=== PATIENT | male | born 1935 | race Caucasian/White ===

== ENCOUNTER → 2017-07-05 | Outpatient (CLI) | payer MEDICAID ==
[~2017-07-05] MED LIST: IODIXANOL LOCM 100 ML BTL; IODIXANOL LOCM 50 ML BTL; SOD CHLORIDE 0.9% 100 ML
== END | disposition home or self-care (01) ==
LOC: C/S 15:03
DX: C44.90 Unspecified malignant neoplasm of skin, unspecified (principal); I70.90 Unspecified atherosclerosis; I51.7 Cardiomegaly; N40.0 Benign prostatic hyperplasia without lower urinary tract symptoms; K40.90 Unilateral inguinal hernia, without obstruction or gangrene, not specified as recurrent
CPT/HCPCS: 71270; 74178

== ENCOUNTER 2017-07-09 13:53 | Inpatient (IN) | payer MEDICAID ==
[2017-07-09 15:45] LABS: ADD MAN DIFF? NO
[2017-07-09] MEDS: morphine 4 MG/ML VIAL IV (15:47)
[2017-07-09 15:48] LABS: WHITE BLOOD COUNT 7.8 10^3/ul (4.8-10.8)
[2017-07-09 15:48] LABS: BASOPHIL # 0.1 10^3/ul (0.0-0.1); BASOPHILS % 0.6 % (0.0-2.0); EOSINOPHILS # 0.1 10^3/ul (0.0-0.5); EOSINOPHILS % 1.8 % (0.0-7.0); HEMATOCRIT 34.2 % (42.0-52.0); HEMOGLOBIN 11.4 g/dl (14.0-18.0); LYMPHOCYTES % 12.4 % (15.0-51.0); MEAN CORPUSCULAR HEMOGLOBIN 31.3 pg (29.0-33.0); MEAN CORPUSCULAR HGB CONC 33.3 g/dl (32.0-37.0); MONOCYTE # 0.4 10^3/ul (0.3-0.9); MONOCYTES % 5.7 % (0.0-11.0); NEUTROPHIL # 6.1 10^3/ul (1.6-7.5); NEUTROPHILS % 79.1 % (39.0-77.0); PLATELET COUNT 233 10^3/UL (140-415); RED BLOOD COUNT 3.64 10^6/ul (4.70-6.10); RED CELL DISTRIBUTION WIDTH 16.6 % (11.5-14.5)
[2017-07-09] MEDS: ACETAMINOPHEN 325 MG TAB PO (15:48)
[2017-07-09] MEDS: ONDANSETRON 4 MG INJ IV (15:48)
[2017-07-09] MEDS: VANCOMYCIN 1 GM (PMX) 250 ML IVPB (15:49)
[2017-07-09] MEDS: SODIUM CHLORIDE 0.9% 1L BAG IV* (15:52)
[2017-07-09] MEDS ORDERED: ONDANSETRON 4 MG INJ IV ×2 (16:00→16:30)
[2017-07-09 16:08] LABS: INR 0.98; PARTIAL THROMBOPLASTIN TIME 31.2 Sec (25.0-35.0); PROTIME 13.1 Sec (11.9-14.9)
[2017-07-09 16:10] LABS: ALANINE AMINOTRANSFERASE 31 IU/L (13-69); ALBUMIN 3.6 g/dl (3.3-4.9); ALBUMIN/GLOBULIN RATIO 0.85; ALKALINE PHOSPHATASE 91 IU/L (42-121); ANION GAP 14 (8-16); ASPARTATE AMINO TRANSFERASE 35 IU/L (15-46); BLOOD UREA NITROGEN 15 mg/dl (7-20); CALCIUM 8.6 mg/dl (8.4-10.2); CARBON DIOXIDE 30 mmol/L (21-31); CHLORIDE 97 mmol/L (97-110); CREATININE 0.98 mg/dl (0.61-1.24); GLUCOSE 96 mg/dl (70-220); POTASSIUM 4.5 mmol/L (3.5-5.1); SODIUM 136 mmol/L (135-144); TOTAL PROTEIN 7.8 g/dl (6.1-8.1)
[2017-07-09 16:22] LABS: TROPONIN-I 0.013 ng/ml (0.00-0.12)
[2017-07-09 16:22] LABS: LACTIC ACID 2.5 mmol/L (0.5-2.0)
[2017-07-09] MEDS ORDERED: VANCOMYCIN IV PER PHARMACY XX (16:30)
[2017-07-09] MEDS ORDERED: ACETAMINOPHEN 325 MG TAB PO (16:30)
[2017-07-09] MEDS: AZTREONAM 1 GM/NS (PMX) 50 ML IVPB (18:31)
[2017-07-09] MEDS: VANCOMYCIN 500MG/NS (PMX) 100 ML IVPB (18:58)
[2017-07-09 19:39] LABS: LACTIC ACID 1.1 mmol/L (0.5-2.0)
[2017-07-09] MEDS ORDERED: GABAPENTIN 300 MG CAP PO (21:00)
[2017-07-09] MEDS: morphine 2 MG INJ IV (21:31)
[2017-07-09] MEDS: SOD CHLORIDE 0.9% 1,000 ML IV (22:20)
[2017-07-09] MEDS: FAMOTIDINE 20 MG TAB PO (22:21)
[2017-07-09] MEDS: HYDROCODONE/APAP (5/325) TAB PO (22:21)
[2017-07-09] MEDS: ZOLPIDEM 5 MG TAB PO (22:21)
[2017-07-09] MEDS: GABAPENTIN 100 MG CAP PO (22:42)
[2017-07-09] MEDS: LEVOFLOXACIN 750MG/D5W (PMX) 150 ML IVPB (22:43)
[2017-07-10] MEDS: AZTREONAM 1 GM/NS (PMX) 50 ML IVPB ×3 (00:05→21:12)
[2017-07-10] MEDS: morphine 2 MG INJ IV (04:44)
[2017-07-10 04:46] LABS: ADD MAN DIFF? NO
[2017-07-10 04:48] LABS: BASOPHIL # 0.1 10^3/ul (0.0-0.1); BASOPHILS % 0.8 % (0.0-2.0); EOSINOPHILS # 0.2 10^3/ul (0.0-0.5); EOSINOPHILS % 3.4 % (0.0-7.0); HEMATOCRIT 28.6 % (42.0-52.0); HEMOGLOBIN 9.3 g/dl (14.0-18.0); LYMPHOCYTES # 0.7 10^3/ul (0.8-2.9); LYMPHOCYTES % 11.4 % (15.0-51.0); MEAN CORPUSCULAR HEMOGLOBIN 30.4 pg (29.0-33.0); MEAN CORPUSCULAR HGB CONC 32.5 g/dl (32.0-37.0); MEAN CORPUSCULAR VOLUME 93.5 fl (82.0-101.0); MEAN PLATELET VOLUME 8.7 fl (7.4-10.4); MONOCYTE # 0.5 10^3/ul (0.3-0.9); MONOCYTES % 7.4 % (0.0-11.0); NEUTROPHIL # 4.8 10^3/ul (1.6-7.5); NEUTROPHILS % 76.5 % (39.0-77.0); PLATELET COUNT 189 10^3/UL (140-415); RED BLOOD COUNT 3.06 10^6/ul (4.70-6.10); RED CELL DISTRIBUTION WIDTH 16.6 % (11.5-14.5)
[2017-07-10 04:48] LABS: WHITE BLOOD COUNT 6.3 10^3/ul (4.8-10.8)
[2017-07-10 05:09] LABS: INR 1.08; PARTIAL THROMBOPLASTIN TIME 33.1 Sec (25.0-35.0); PROTIME 14.1 Sec (11.9-14.9); PT RATIO 1.1
[2017-07-10 05:15] LABS: ANION GAP 12 (8-16); BLOOD UREA NITROGEN 12 mg/dl (7-20); CARBON DIOXIDE 27 mmol/L (21-31); CHLORIDE 105 mmol/L (97-110); CHOLESTEROL 126 mg/dl (100-200); CREATININE 0.83 mg/dl (0.61-1.24); GLUCOSE 118 mg/dl (70-220); HDL CHOLESTEROL 41 mg/dl (31-75); LDL CHOLESTEROL,CALCULATED 63 mg/dl; MAGNESIUM 1.8 mg/dl (1.7-2.5); PHOSPHORUS 3.7 mg/dl (2.5-4.9); POTASSIUM 4.3 mmol/L (3.5-5.1); SODIUM 140 mmol/L (135-144); TRIGLYCERIDES 109 mg/dl (0-149)
[2017-07-10 05:29] LABS: FREE THYROXINE INDEX (Calc) 1.88 ug/ml (0.65-3.89); T3 UPTAKE 36.2 % (23.5-40.5); T4 (THYROXINE) 5.2 ug/dl (5.5-11.0)
[2017-07-10 05:35] LABS: HEMOGLOBIN A1C 5.2 % (0-5.9)
[2017-07-10] MEDS: LEVOTHYROXINE 50 MCG TAB PO (06:23)
[2017-07-10 06:54] LABS: ADD UMIC NO; UR ASCORBIC ACID NEGATIVE (NEGATIVE); UR BILIRUBIN (Dip) NEGATIVE (NEGATIVE); UR BLOOD (Dip) NEGATIVE (NEGATIVE); UR CLARITY CLEAR (CLEAR); UR COLOR YELLOW (YELLOW); UR GLUCOSE (Dip) NEGATIVE (NEGATIVE); UR KETONES (Dip) NEGATIVE (NEGATIVE); UR LEUKOCYTE ESTERASE (Dip) NEGATIVE Leu/ul (NEGATIVE); UR NITRITE (Dip) NEGATIVE (NEGATIVE); UR SPECIFIC GRAVITY (Dip) 1.009 (1.003-1.030); UR TOTAL PROTEIN (Dip) NEGATIVE (NEGATIVE); UR UROBILINOGEN (Dip) NEGATIVE (NEGATIVE)
[2017-07-10] MEDS: GABAPENTIN 100 MG CAP PO ×3 (09:54→20:39)
[2017-07-10] MEDS: FAMOTIDINE 20 MG TAB PO ×2 (09:55→20:39)
[2017-07-10] MEDS: DOCUSATE SODIUM 250 MG CAP PO (12:48)
[2017-07-10] MEDS: SOD CHLORIDE 0.9% 1,000 ML IV (12:48)
[2017-07-10] MEDS ORDERED: VANCOMYCIN 1 GM 250 ML IVPB (15:00)
[2017-07-10] MEDS: VANCOMYCIN 1.25 GM in SOD CHLORIDE 0.9% 250 ML IVPB (16:29)
[2017-07-10] MEDS: HYDROCODONE/APAP (5/325) TAB PO (19:30)
[2017-07-10] MEDS: LEVOFLOXACIN 750MG/D5W (PMX) 150 ML IVPB (19:30)
[2017-07-10] MEDS: ZOLPIDEM 5 MG TAB PO (21:53)
[2017-07-11 06:01] LABS: ADD MAN DIFF? NO
[2017-07-11 06:05] LABS: BASOPHILS % 0.4 % (0.0-2.0); EOSINOPHILS # 0.1 10^3/ul (0.0-0.5); EOSINOPHILS % 1.7 % (0.0-7.0); HEMATOCRIT 29.2 % (42.0-52.0); HEMOGLOBIN 9.6 g/dl (14.0-18.0); LYMPHOCYTES # 0.9 10^3/ul (0.8-2.9); LYMPHOCYTES % 12.8 % (15.0-51.0); MEAN CORPUSCULAR HEMOGLOBIN 31.2 pg (29.0-33.0); MEAN CORPUSCULAR HGB CONC 32.9 g/dl (32.0-37.0); MEAN CORPUSCULAR VOLUME 94.8 fl (82.0-101.0); MEAN PLATELET VOLUME 9.1 fl (7.4-10.4); MONOCYTE # 0.6 10^3/ul (0.3-0.9); MONOCYTES % 8.5 % (0.0-11.0); NEUTROPHIL # 5.3 10^3/ul (1.6-7.5); NEUTROPHILS % 75.9 % (39.0-77.0); PLATELET COUNT 197 10^3/UL (140-415); RED BLOOD COUNT 3.08 10^6/ul (4.70-6.10); RED CELL DISTRIBUTION WIDTH 16.7 % (11.5-14.5)
[2017-07-11 06:16] LABS: ANION GAP 12 (8-16); BLOOD UREA NITROGEN 13 mg/dl (7-20); CALCIUM 8.2 mg/dl (8.4-10.2); CARBON DIOXIDE 27 mmol/L (21-31); CHLORIDE 104 mmol/L (97-110); CREATININE 0.87 mg/dl (0.61-1.24); GLUCOSE 118 mg/dl (70-220); MAGNESIUM 1.6 mg/dl (1.7-2.5); POTASSIUM 4.2 mmol/L (3.5-5.1); SODIUM 139 mmol/L (135-144)
[2017-07-11] MEDS: LEVOTHYROXINE 50 MCG TAB PO (07:45)
[2017-07-11] MEDS: FAMOTIDINE 20 MG TAB PO ×2 (08:22→20:57)
[2017-07-11] MEDS: AZTREONAM 1 GM/NS (PMX) 50 ML IVPB ×2 (08:22→21:23)
[2017-07-11] MEDS: DOCUSATE SODIUM 250 MG CAP PO ×2 (08:22→08:24)
[2017-07-11] MEDS: GABAPENTIN 100 MG CAP PO ×3 (08:22→20:57)
[2017-07-11] MEDS: HYDROCODONE/APAP (5/325) TAB PO ×2 (08:23→19:34)
[2017-07-11] MEDS: morphine 2 MG INJ IV (11:03)
[2017-07-11] MEDS: VANCOMYCIN 1.25 GM in SOD CHLORIDE 0.9% 250 ML IVPB (15:49)
[2017-07-11] MEDS: GUAIFENESIN/DM 5ML CUP PO (15:52)
[2017-07-11] MEDS ORDERED: MAGNESIUM SULFATE (GM) 50% 2 ML INJ IM (16:00)
[2017-07-11] MEDS ORDERED: MAGNESIUM SULFATE 2 GM/50 ML 50 ML IVPB (16:00)
[2017-07-11] MEDS: ALBUTEROL 0.083% (NEB) 2.5 MG/3 ML AMP HHN ×2 (16:35→20:32)
[2017-07-11] MEDS: MAGNESIUM SULFATE 2 GM/50 ML 50 ML IVPB (19:31)
[2017-07-11] MEDS: LEVOFLOXACIN 750MG/D5W (PMX) 150 ML IVPB (22:01)
[2017-07-12] MEDS: ALBUTEROL 0.083% (NEB) 2.5 MG/3 ML AMP HHN ×4 (00:59→14:18)
[2017-07-12 05:47] LABS: ADD MAN DIFF? NO
[2017-07-12 05:49] LABS: BASOPHILS % 0.5 % (0.0-2.0); EOSINOPHILS # 0.2 10^3/ul (0.0-0.5); EOSINOPHILS % 2.7 % (0.0-7.0); HEMATOCRIT 27.6 % (42.0-52.0); HEMOGLOBIN 9.3 g/dl (14.0-18.0); LYMPHOCYTES # 1.1 10^3/ul (0.8-2.9); LYMPHOCYTES % 18.2 % (15.0-51.0); MEAN CORPUSCULAR HEMOGLOBIN 31.3 pg (29.0-33.0); MEAN CORPUSCULAR HGB CONC 33.7 g/dl (32.0-37.0); MEAN CORPUSCULAR VOLUME 92.9 fl (82.0-101.0); MEAN PLATELET VOLUME 9.1 fl (7.4-10.4); MONOCYTE # 0.6 10^3/ul (0.3-0.9); MONOCYTES % 9.7 % (0.0-11.0); NEUTROPHIL # 4.1 10^3/ul (1.6-7.5); NEUTROPHILS % 68.2 % (39.0-77.0); PLATELET COUNT 196 10^3/UL (140-415); RED BLOOD COUNT 2.97 10^6/ul (4.70-6.10); RED CELL DISTRIBUTION WIDTH 16.6 % (11.5-14.5)
[2017-07-12 07:00] LABS: ANION GAP 14 (8-16); BLOOD UREA NITROGEN 13 mg/dl (7-20); CALCIUM 8.4 mg/dl (8.4-10.2); CARBON DIOXIDE 26 mmol/L (21-31); CHLORIDE 103 mmol/L (97-110); CREATININE 0.92 mg/dl (0.61-1.24); GLUCOSE 81 mg/dl (70-220); POTASSIUM 4.3 mmol/L (3.5-5.1); SODIUM 139 mmol/L (135-144)
[2017-07-12] MEDS: LEVOTHYROXINE 50 MCG TAB PO (07:14)
[2017-07-12] MEDS: AZTREONAM 1 GM/NS (PMX) 50 ML IVPB (08:50)
[2017-07-12] MEDS: HYDROCODONE/APAP (5/325) TAB PO (08:50)
[2017-07-12] MEDS: GABAPENTIN 100 MG CAP PO ×3 (09:10→20:04)
[2017-07-12] MEDS: FAMOTIDINE 20 MG TAB PO ×2 (09:37→20:04)
[2017-07-12] MEDS: DOCUSATE SODIUM 250 MG CAP PO (09:37)
[2017-07-12] MEDS: GUAIFENESIN/DM 5ML CUP PO ×2 (09:37→20:04)
[2017-07-12] MEDS: morphine 2 MG INJ IV ×3 (13:48→21:09)
[2017-07-12] MEDS: ERTAPENEM SODIUM 1 GM in SOD CHLORIDE 0.9% 100 ML IVPB (14:15)
[2017-07-12] MEDS: VANCOMYCIN 1.5 GM in SOD CHLORIDE 0.9% 250 ML IVPB (16:59)
[2017-07-13] MEDS: HYDROCODONE/APAP (5/325) TAB PO ×3 (06:04→20:14)
[2017-07-13] MEDS: LEVOTHYROXINE 50 MCG TAB PO (06:04)
[2017-07-13 06:16] LABS: WHITE BLOOD COUNT 6.2 10^3/ul (4.8-10.8)
[2017-07-13 06:16] LABS: ADD MAN DIFF? NO; BASOPHILS % 0.6 % (0.0-2.0); EOSINOPHILS # 0.2 10^3/ul (0.0-0.5); HEMATOCRIT 29.4 % (42.0-52.0); HEMOGLOBIN 9.8 g/dl (14.0-18.0); LYMPHOCYTES # 0.8 10^3/ul (0.8-2.9); LYMPHOCYTES % 12.5 % (15.0-51.0); MEAN CORPUSCULAR HEMOGLOBIN 30.9 pg (29.0-33.0); MEAN CORPUSCULAR HGB CONC 33.3 g/dl (32.0-37.0); MEAN CORPUSCULAR VOLUME 92.7 fl (82.0-101.0); MONOCYTE # 0.6 10^3/ul (0.3-0.9); MONOCYTES % 9.8 % (0.0-11.0); NEUTROPHIL # 4.6 10^3/ul (1.6-7.5); NEUTROPHILS % 73.1 % (39.0-77.0); PLATELET COUNT 211 10^3/UL (140-415); RED BLOOD COUNT 3.17 10^6/ul (4.70-6.10); RED CELL DISTRIBUTION WIDTH 16.5 % (11.5-14.5)
[2017-07-13 06:33] LABS: ANION GAP 10 (8-16); BLOOD UREA NITROGEN 13 mg/dl (7-20); CALCIUM 8.5 mg/dl (8.4-10.2); CARBON DIOXIDE 26 mmol/L (21-31); CHLORIDE 102 mmol/L (97-110); CREATININE 0.84 mg/dl (0.61-1.24); GLUCOSE 140 mg/dl (70-220); POTASSIUM 4.3 mmol/L (3.5-5.1); SODIUM 134 mmol/L (135-144)
[2017-07-13] MEDS: FAMOTIDINE 20 MG TAB PO ×2 (08:21→20:14)
[2017-07-13] MEDS: GABAPENTIN 100 MG CAP PO ×3 (08:21→20:14)
[2017-07-13] MEDS: DOCUSATE SODIUM 250 MG CAP PO (08:21)
[2017-07-13] MEDS ORDERED: LIDOCAINE 1% (MPF) 5 ML VIAL SC ×2 (10:30→14:00)
[2017-07-13] MEDS: ERTAPENEM SODIUM 1 GM in SOD CHLORIDE 0.9% 100 ML IVPB (12:29)
[2017-07-13] MEDS: GUAIFENESIN/DM 5ML CUP PO (16:47)
[2017-07-13] MEDS: VANCOMYCIN 1.5 GM in SOD CHLORIDE 0.9% 250 ML IVPB (16:48)
[2017-07-13] MEDS: ZOLPIDEM 5 MG TAB PO (21:18)
[2017-07-13] MEDS: morphine 2 MG INJ IV (22:16)
[2017-07-14] MEDS: LEVOTHYROXINE 50 MCG TAB PO (07:24)
[2017-07-14] MEDS: FAMOTIDINE 20 MG TAB PO ×2 (08:31→20:43)
[2017-07-14] MEDS: DOCUSATE SODIUM 250 MG CAP PO (08:31)
[2017-07-14] MEDS: GABAPENTIN 100 MG CAP PO ×3 (08:31→20:43)
[2017-07-14] MEDS: ERTAPENEM SODIUM 1 GM in SOD CHLORIDE 0.9% 100 ML IVPB (12:18)
[2017-07-14] MEDS: HYDROCODONE/APAP (5/325) TAB PO ×2 (14:05→20:43)
[2017-07-14] MEDS: GUAIFENESIN/DM 5ML CUP PO ×2 (16:01→20:43)
[2017-07-14] MEDS: VANCOMYCIN 1.5 GM in SOD CHLORIDE 0.9% 250 ML IVPB (16:53)
[2017-07-15] MEDS: GUAIFENESIN/DM 5ML CUP PO ×3 (01:49→13:09)
[2017-07-15] MEDS: HYDROCODONE/APAP (5/325) TAB PO ×2 (02:59→14:59)
[2017-07-15 05:31] LABS: ADD MAN DIFF? NO
[2017-07-15] MEDS: LEVOTHYROXINE 50 MCG TAB PO (05:33)
[2017-07-15 05:44] LABS: BASOPHIL # 0.1 10^3/ul (0.0-0.1); BASOPHILS % 1.2 % (0.0-2.0); EOSINOPHILS # 0.2 10^3/ul (0.0-0.5); HEMATOCRIT 29.7 % (42.0-52.0); LYMPHOCYTES % 16.3 % (15.0-51.0); MEAN CORPUSCULAR HEMOGLOBIN 30.9 pg (29.0-33.0); MEAN CORPUSCULAR HGB CONC 33.7 g/dl (32.0-37.0); MEAN CORPUSCULAR VOLUME 91.7 fl (82.0-101.0); MONOCYTE # 0.9 10^3/ul (0.3-0.9); MONOCYTES % 14.3 % (0.0-11.0); NEUTROPHIL # 3.8 10^3/ul (1.6-7.5); NEUTROPHILS % 63.4 % (39.0-77.0); NUCLEATED RED BLOOD CELLS # 0.1 10^3/ul (0.0-0.0); NUCLEATED RED BLOOD CELLS% 0.8 /100WBC (0.0-0.0); PLATELET COUNT 224 10^3/UL (140-415); RED BLOOD COUNT 3.24 10^6/ul (4.70-6.10); RED CELL DISTRIBUTION WIDTH 16.7 % (11.5-14.5)
[2017-07-15 05:44] LABS: WHITE BLOOD COUNT 5.9 10^3/ul (4.8-10.8)
[2017-07-15 06:13] LABS: ALANINE AMINOTRANSFERASE 27 IU/L (13-69); ALBUMIN 3.1 g/dl (3.3-4.9); ALBUMIN/GLOBULIN RATIO 0.88; ALKALINE PHOSPHATASE 73 IU/L (42-121); ANION GAP 11 (8-16); ASPARTATE AMINO TRANSFERASE 26 IU/L (15-46); BLOOD UREA NITROGEN 13 mg/dl (7-20); CALCIUM 8.6 mg/dl (8.4-10.2); CARBON DIOXIDE 29 mmol/L (21-31); CHLORIDE 100 mmol/L (97-110); GLUCOSE 93 mg/dl (70-220); SODIUM 136 mmol/L (135-144); TOTAL PROTEIN 6.6 g/dl (6.1-8.1)
[2017-07-15] MEDS: DOCUSATE SODIUM 250 MG CAP PO (08:48)
[2017-07-15] MEDS: FAMOTIDINE 20 MG TAB PO ×2 (08:48→20:22)
[2017-07-15] MEDS: RIFAMPIN 300 MG CAP PO (08:49)
[2017-07-15] MEDS: GABAPENTIN 100 MG CAP PO ×3 (08:49→20:22)
[2017-07-15 10:14] LABS: ERYTHROCYTE SEDIMENTATION RATE 73 mm/Hr (0-20)
[2017-07-15 13:07] LABS: MAGNESIUM 1.9 mg/dl (1.7-2.5)
[2017-07-15] MEDS: ERTAPENEM SODIUM 1 GM in SOD CHLORIDE 0.9% 100 ML IVPB (13:09)
[2017-07-15] MEDS: VANCOMYCIN 1.5 GM in SOD CHLORIDE 0.9% 250 ML IVPB (16:32)
== END 2017-07-15 21:00 | disposition home health service (06) | DRG 603 ==
LOC: E/R 13:53 → MS2 07-12 12:17 → MS3 15:32
DX: L03.313 Cellulitis of chest wall (principal); C78.00 Secondary malignant neoplasm of unspecified lung; C92.10 Chronic myeloid leukemia, BCR/ABL-positive, not having achieved remission; L59.8 Other specified disorders of the skin and subcutaneous tissue related to radiation; L02.213 Cutaneous abscess of chest wall; G62.9 Polyneuropathy, unspecified; C76.1 Malignant neoplasm of thorax; E83.42 Hypomagnesemia; N18.9 Chronic kidney disease, unspecified; Z85.46 Personal history of malignant neoplasm of prostate; E89.0 Postprocedural hypothyroidism; Z89.231 Acquired absence of right shoulder; D50.0 Iron deficiency anemia secondary to blood loss (chronic); E87.6 Hypokalemia; Z87.891 Personal history of nicotine dependence; G54.6 Phantom limb syndrome with pain; Z51.5 Encounter for palliative care; B95.62 Methicillin resistant Staphylococcus aureus infection as the cause of diseases classified elsewhere; Z16.12 Extended spectrum beta lactamase (ESBL) resistance
CPT/HCPCS: 36415; 71045; 80048; 80053; 80061; 80202; 81003; 82962; 83036; 83605; 83735; 84100; 84436; 84479; 84484; 85025; 85610; 85651; 85730; 87040; 87070; 87086; 93005; 94640; 94664; 96374; 96375; 96376; 99291-25

== ENCOUNTER → 2017-07-26 | Outpatient (CLI) | payer MEDICAID ==
[2017-07-26] MEDS: LIDOCAINE 1% (MPF) 5 ML VIAL SC (16:29)
== END | disposition home or self-care (01) ==
LOC: RAD 15:45
DX: C44.90 Unspecified malignant neoplasm of skin, unspecified (principal)
CPT/HCPCS: 36569; 71045; 76937